=== PATIENT | male | born 1975 | race Hispanic/Latino ===

== ENCOUNTER 2019-01-04 05:22 | Emergency (ER) | payer SELFPAY ==
[2019-01-04] MEDS ORDERED: Ondansetron PF 4 MG/2 ML Vial ONE (05:42)
[2019-01-04] MEDS ORDERED: Morphine 4 MG/ML VIAL ONE (05:42)
[2019-01-04] MEDS ORDERED: Ketorolac Tromethamine 30 MG/ML VIAL ONE (05:43)
[2019-01-04 06:05] LABS: #Eosinphils 0.2 thou/uL (0.0-0.7); #Lymphocytes 1.7 thou/uL (1.20-3.40); #Monocytes 0.5 thou/uL (0.11-0.59); #Neutrophils 4.6 thou/uL (1.40-6.50); %Basophils 0.4 % (0.0-1.0); %Eosinophils 2.2 % (0.0-10.0); %Lymphocytes 24.4 % (21.0-51.0); %Monocytes 6.6 % (0.0-10.0); %Neutrophils 66.4 % (42.0-75.0); ALT (SGPT) 44 U/L (8-55); AST (SGOT) 27 U/L (5-34); Albumin 4.4 g/dL (3.5-5.0); Alkaline Phosphatase 149 U/L (40-150); Anion Gap 12 mmol/L (10-20); BUN (Urea Nitrogen) 16 mg/dL (8.9-20.6); Bilirubin, Total 0.9 mg/dL (0.2-1.2); Calc. Creatinine Clearance 0 mL/min (70-130); Calcium 9.5 mg/dL (7.8-10.44); Carbon Dioxide 29 mmol/L (22-29); Chloride 103 mmol/L (98-107); Estimated GFR-MDRD 67; Globulin 3.2 g/dL (2.4-3.5); Glucose 132 mg/dL (70-105); Hemoglobin 16.1 g/dL (14.0-18.0); Mean Corpuscular HGB CONC 34.9 g/dL (32.0-36.0); Mean Corpuscular Hemoglobin 30.4 pg (27.0-31.0); Mean Corpuscular Volume 87.3 fL (78.0-98.0); Mean Platelet Volume 9.4 fL (7.4-10.4); Platelet Count 227 thou/uL (130-400); Potassium 3.5 mmol/L (3.5-5.1); Protein, Total 7.6 g/dL (6.0-8.3); Red Blood Cell (RBC) Count 5.28 mill/uL (4.70-6.10); Sodium 140 mmol/L (136-145); White Blood Cell (WBC) Count 6.9 thou/uL (4.8-10.8)
[2019-01-04 07:10] LABS: Bilirubin Negative (Negative); Blood, Urine Negative (Negative); Clarity CLEAR (Clear); Glucose, Urine (Dipstick) 100 mg/dL (Negative); Leukocyte Negative (Negative); Nitrite Negative (Negative); Protein, Urine (Dipstick) Negative (Neg-Trace); Specific Gravity, Urine 1.028 (1.002-1.036); Urobilinogen 0.2 mg/dL (0.2-1.0)
--- NOTE | 2019-01-04 08:03 | CT ---
CT ABDOMEN AND PELVIS WITHOUT IV CONTRAST: Date: 01/04/19 INDICATION: History of right-sided flank pain. COMPARISON: None. FINDINGS: There is a 2 mm distal right ureteral calculus causing mild right hydronephrosis. The calculus is conrad roximately 2 cm from the level of the right UVJ. There is a 3 mm left mid renal nonobstructing calcul us. The lung bases are clear. Unopacified liver, pancreas, adrenal glands, and spleen appear within normal limits. There is a denise l retrocecal appendix. There are a few scattered colonic diverticula. The bladder is decompressed. Th ere are fat-containing inguinal hernias bilaterally. There is no definite acute osseous abnormality. IMPRESSION: 1. 2 mm distal right ureteral calculus with mild right hydronephrosis. 2. Left nephrolithiasis. POS: BH
== END 2019-01-04 08:15 | disposition home or self-care (01) ==
LOC: ERS 05:22
DX: N13.2 Hydronephrosis with renal and ureteral calculous obstruction (principal)
CPT/HCPCS: 74176; 80053; 81003; 85025; 87086; 96361; 96374; 96375; J1885; J2270; J2405